=== PATIENT | male | born 1955 | race Caucasian/White ===

== ENCOUNTER 2017-05-04 10:31 | Emergency (ER) | payer OTHER ==
[~2017-05-04] VITALS: Ht 198.1 cm; Wt 110.0 kg
[2017-05-04 10:32] VITALS: BP 133/92; PULSE 76; RESP 20; TEMP 97.3; O2SAT 97
[2017-05-04] MEDS ORDERED: LEVO.1 PO (10:59)
--- NOTE | 2017-05-04 11:13 | PD ---
HPI Chief Complaint: Laceration/Skin Injury Time Seen by Provider: 11:13 Travel History International Travel<30 days: No Contact w/Intl Traveler<30days: No Traveled to known affect area: No History of Present Illness HPI 61-year-old male presents to the emergency Department with complaint of a laceration to his left middle finger from a knife today. Denies paresthesias, loss of sensation, decreased range of motion to the affected finger. Has applied butterfly strips and pressure to control bleeding. Is not up-to-date on tetanus vaccination. No known allergies. Has no other medical complaints. No other modifying factors or associated signs and symptoms. [facility] Social History Tobacco Use: No Allergies-Medications (Allergen,Severity, Reaction): Coded Allergies: No Known Allergies (Unverified , 05/04/17) Reported Meds & Prescriptions Reported Meds & Active Scripts Active Ibuprofen 600 Mg Tab 600 Mg PO Q6H PRN Reported Synthroid (Levothyroxine Sodium) 100 Mcg Tab 100 Mcg PO DAILY Review of Systems Except as stated in HPI: all other systems reviewed are Neg Physical Exam Narrative GENERAL: Well-nourished, well-developed male patient, in no acute distress SKIN: Warm and dry. Approximately 1.5 cm laceration to the distal ventral aspect of the left third digit; finger with full range of motion; good opposition, sensory intact; and less than 3 second cap refill. Left upper extremity supple and non-tense with 2+ radial pulse and sensory intact without erythema or edema. HEAD: Atraumatic. Normocephalic. EYES: Pupils equal and round. No scleral icterus. No injection or drainage. ENT: Mucosa pink and moist. Airway patent. NECK: Trachea midline. CARDIOVASCULAR: Regular rate. RESPIRATORY: No accessory muscle use. GASTROINTESTINAL: Flat. MUSCULOSKELETAL: No obvious deformities. No clubbing. No cyanosis. No edema. NEUROLOGICAL: Awake and alert. Oriented 3. No obvious cranial nerve deficits. Motor grossly within normal limits. Normal speech. PSYCHIATRIC: Appropriate mood and affect; insight and judgment normal. Data Data Last Documented VS Vital Signs Date Time Temp Pulse Resp B/P Pulse Ox O2 Delivery O2 Flow Rate FiO2 05/04/17 10:32 97.3 76 20 133/92 97 Room Air Orders Tetanus/Diphtheria Tox Adult (Tetanus/Di (05/04/17 11:15) Bupivacaine Pf 0.5% Inj (Marcaine Pf 0.5 (05/04/17 11:15) Lidocaine 1% Inj (50 Ml) (Xylocaine 1% I (05/04/17 11:15) [facility] Medical Decision Making Medical Screen Exam Complete: Yes Emergency Medical Condition: Yes Medical Record Reviewed: Yes Differential Diagnosis Finger laceration, cut, abrasion Narrative Course 61-year-old male with laceration to the distal aspect of his left third digit. Tetanus updated in the ER.. Procedure note for laceration repair. Ibuprofen prescribed for home. Instructed patient to follow up with primary care provider. Patient verbalizes understanding and agreement with treatment plan. Patient is medically cleared and stable for discharge. Discussed reasons to return to the emergency department. Patient agrees with treatment plan. The patients vital signs are stable and the patient is stable for outpatient follow- up and treatment. Patient discharged home, stable and in no acute distress. Procedures Procedure Narrative LACERATION LOCATION: Distal, ventral aspect of left third finger LENGTH: 1.5 cm NUMBER OF STITCHES/GENI: 3 stitches REPAIR: The area of the laceration was prepped with Betadine and sterilely draped. The finger was digitally blocked with 1% lidocaine and 0.5% bupivacaine. The wound was copiously irrigated and explored without evidence of foreign body, tendon injury or neurovascular injury. The wound was closed using 4-0 Prolene. This was a single layer repair. A sterile dressing was applied. The patient was advised to keep the dressing clean and dry. Patient tolerated the procedure well. Diagnosis Primary Impression: Finger laceration Qualified Code: S61.213A - Laceration of left middle finger without foreign body without damage to nail, initial encounter Referrals: Primary Care Physician Patient Instructions: Care For Your Stitches (ED), Finger Laceration (ED), General Instructions Additional Instructions: Keep area clean and dry Limit left middle finger activity to decrease risk of sutures coming undone Ibuprofen every 6 hours as directed and as needed for pain Ice pack to area as needed to decrease pain Return to the emergency department or follow-up with primary care provider in 7- 10 days for suture removal Follow up with primary care provider Return to the emergency department immediately with worsening of symptoms, particularly if reddened streaks up or down the affected extremity from the suture site, fever, numbness/tingling in the affected extremity, loss of sensation in the affected extremity, severe swelling of the affected Med/Other Pt SpecificInfo: Prescription(s) given Scripts Ibuprofen 600 Mg [id number] Mg PO Q6H PRN (PAIN) #20 TAB Ref 0 Prov:Chica Garcia 05/04/17 Disposition: 01 DISCHARGE HOME Condition: Stable Chica Garcia May 04, 2017 11:13
[2017-05-04] MEDS ORDERED: TETANUS/DIPHTHERIA TOXOID ADULT 0.5 ML VIAL IM ONE (11:15)
[2017-05-04] MEDS ORDERED: BUPIVACAINE HCL PF 0.5% 10 ML VIAL INFIL ONE (11:15)
[2017-05-04] MEDS ORDERED: LIDOCAINE HCL 1% 50 ML VIAL INFIL ONE (11:15)
[2017-05-04] MEDS ORDERED: CEPH-460 PO (11:16)
[2017-05-04] MEDS ORDERED: IBUP-232 PO (11:16)
== END 2017-05-04 12:32 | disposition home or self-care (01) ==
LOC: NEPK 10:31
DX: S61.213A Laceration without foreign body of left middle finger without damage to nail, initial encounter (principal); W26.0XXA Contact with knife, initial encounter; Z23 Encounter for immunization
CPT/HCPCS: 12001; 90471; 90714